=== PATIENT | female | born 1975 | race African-American/Black ===

== ENCOUNTER 2023-01-26 09:36 | Emergency (ER) | payer MEDICAID, OTHER ==
[~2023-01-26] VITALS: Ht 165.1 cm; Wt 88.0 kg
[~2023-01-26 09:36] MED LIST: CYCL5TAB PO; FERR-71 PO; ONDA4TAB5 SL
[2023-01-26] MEDS ORDERED: KETOROLAC 15MG/ML VIAL IM ONE (10:00)
[2023-01-26] MEDS ORDERED: NAPR500T7 MT (11:20)
[2023-01-26 11:45] VITALS: BP 122/87
== END 2023-01-26 11:47 | disposition home or self-care (01) ==
LOC: ER 09:36
DX: M79.601 Pain in right arm (principal); M25.562 Pain in left knee; Z88.0 Allergy status to penicillin; Z91.013 Allergy to seafood
CPT/HCPCS: 73030; 73060; 73080; 73562; 96372; 99284; J1885; Z7610